=== PATIENT | female | born 1945 | race Caucasian/White ===

== ENCOUNTER → 2023-08-18 | Outpatient (CLI) | payer MEDICARE, BC ==
[~2023-08-18] MED LIST: ACET-812 PO; AMLO5TAB16 PO; ASPI-1397 PO; ATOR40TA72 PO; CALC-854 PO; CHOL10008 PO; CLOP75TA34 PO; CYAN250010 PO; GABA-535 PO; INDLA80C PO; LEVO100T9 PO; SODI100035 PO; iohexol 350MG/ML 100ml bottle IV ONE
[2023-08-18 09:14] LABS: ANION GAP 7 (8-16); BLOOD UREA NITROGEN 22 MG/DL (7-18); BUN/CREATININE RATIO 20.4 (10.0-20.0); CALCIUM 9.7 MG/DL (8.5-10.1); CHLORIDE 103 MMOL/L (99-107); CREATININE 1.08 MG/DL (0.40-0.90); GLUCOSE 98 MG/DL (70-104); POTASSIUM 4.7 MMOL/L (3.5-5.1); SODIUM 136 MMOL/L (135-145); TOTAL CARBON DIOXIDE 26.2 MMOL/L (24-32); eGFR 49 ML/MIN
== END | disposition home or self-care (01) ==
LOC: RAD 08:33
PROVIDERS: ATTEND Internal Medicine Interventional Cardiology
DX: I65.23 Occlusion and stenosis of bilateral carotid arteries (principal); E78.5 Hyperlipidemia, unspecified
CPT/HCPCS: 36415; 70498; 80048; J3490; Q9967

== ENCOUNTER 2024-04-07 09:19 | Outpatient (CLI) | payer MEDICARE, BC ==
[~2024-04-07 09:19] MED LIST changes: -CALC-854 PO; +CLOP75TA33 PO; -CLOP75TA34 PO; +CYAN100T9 PO; -CYAN250010 PO; -INDLA80C PO; +PROP40TA72 PO; -iohexol 350MG/ML 100ml bottle IV ONE
[2024-04-07 10:20] LABS: ALBUMIN 4.1 G/DL (3.4-5.0); ANION GAP 11 (8-16); BLOOD UREA NITROGEN 20 MG/DL (7-18); BUN/CREATININE RATIO 22.5 (10.0-20.0); CALCIUM 9.6 MG/DL (8.5-10.1); CHLORIDE 103 MMOL/L (99-107); CREATININE 0.89 MG/DL (0.40-0.90); GLUCOSE 95 MG/DL (70-104); POTASSIUM 4.4 MMOL/L (3.5-5.1); SODIUM 140 MMOL/L (135-145); TOTAL CARBON DIOXIDE 26.3 MMOL/L (24-32); eGFR 62 ML/MIN
[2024-04-07] MEDS ORDERED: iohexol 350MG/ML 100ml bottle IV ONE (10:28)
== END 2024-04-07 23:59 | disposition home or self-care (01) ==
LOC: 64 CT 09:19
PROVIDERS: ATTEND Internal Medicine Interventional Cardiology
DX: I65.23 Occlusion and stenosis of bilateral carotid arteries (principal); I70.0 Atherosclerosis of aorta
CPT/HCPCS: 36415; 70498; 80048; Q9967